=== PATIENT | male | born 1990 | race Caucasian/White ===

== ENCOUNTER 2023-02-21 14:48 | Emergency (ER) | payer MEDICAID ==
[~2023-02-21] VITALS: Ht 185.4 cm; Wt 95.0 kg
[~2023-02-21 14:48] MED LIST: NAPR-1154 PO
[2023-02-21 15:02] VITALS: BP 153/101
[2023-02-21] MEDS ORDERED: bacitracin 15gm ointment TP ONE (15:45)
[2023-02-21] MEDS ORDERED: TETanus/Pertussis (Acell)/Diphther VAC/PF (Tdap-Adult) 0.5ml syringe IMVAC ONE (15:45)
== END 2023-02-21 16:23 | disposition left against medical advice (07) ==
LOC: ER 14:48
DX: S91.332A Puncture wound without foreign body, left foot, initial encounter (principal); F12.10 Cannabis abuse, uncomplicated; W22.8XXA Striking against or struck by other objects, initial encounter; Y93.89 Activity, other specified; Y92.89 Other specified places as the place of occurrence of the external cause; Y99.8 Other external cause status
CPT/HCPCS: 73630; 90471; 90715; 99283